=== PATIENT | female | born 1980 | race Caucasian/White ===

== ENCOUNTER 2024-04-02 07:37 | Emergency (ER) | payer BC, SELFPAY ==
[2024-04-02] VITALS (9 sets, daily range): BP systolic 94–125; BP diastolic 61–83; BMI 31.3
--- NOTE | 2024-04-02 08:44 | ED.GENMED ---
History of Present Illness
General
Chief Complaint: Blood Pressure Problem
Source: patient
Exam Limitations: none
Time Seen by Provider: 04/02/24 08:07
Nursing documentation reviewed up to this point in time: agreed with
History of Present Illness
History of Present Illness:
Patient with history of lupus maintained on hydroxychloroquine, presents to ED secondary to persistent headache, along with chills sensation and multiple vomiting episodes over the past 2 days. Of note, patient is status post right lower tooth
implant 4 days ago. Since then, patient has had persistent tooth pain, which she has attributed to the procedure. Patient has been taking 800 mg of Advil, with gradual improvement in her tooth ache. Denies throat swelling or pain. Denies loss of
appetite. Denies blurred vision. Denies dizziness. Denies loss of sensation or weakness. Denies previous history of headache. Denies recent sick contact. Denies recent travel. Denies rash.
Review of Systems
Review of Systems
Allergies reviewed?: Yes
All Other Systems: ROS reviewed and negative except as documented in HPI and ROS
Constitutional: Reports chills; Denies fever
EENT: Reports other (Tooth ache)
Respiratory: Reports no symptoms
Cardiac: Reports no symptoms
ABD/GI: Reports nausea and vomiting; Denies abdominal pain
Musculoskeletal: Reports no symptoms
Skin: Reports no symptoms
Neurological: Reports headache; Denies dizzy or weakness
Phy Exam
Physical Exam
Physical Exam:
Physical Exam
General: mild painful distress, not acutely ill. afebrile
Head: nc/at. eomi.
Neck: supple. no meningeal signs. negative Kernig's and Brudzinski sign. right lower teeth #30/31 with transplant noted with mild gingival swelling and tenderness to palpation.
Heart: s1/s2 regular rate and rhythm, no murmur. equal radial pulses.
Lungs: no acute respiratory distress. clear bilaterally
Abdomen: normal bowel sounds. not tender.
Neuro: alert and oriented. no focal neurological deficits
Skin: no rash
Psychiatric: well kept. interactive and cooperative
Extremities: no edema. no calf tenderness.
Course
Orders/Labs/Results
Orders:
Orders
04/02/24 08:23
0.9% Sodium Chloride 1000 ml [Nss] 1,000 ml IV BOLUS
Ketorolac [Toradol] 15 mg IV NOW STA
Ondansetron Injectable [Zofran] 4 mg IV NOW STA
Test Result ONCE
04/02/24 08:54
CBC/With ESR Urgent
CRP [C-Reactive Protein] Urgent
Comprehensive Metabolic Panel Urgent
HCG, Serum Qualitative Screen Urgent
Magnesium Urgent
04/02/24 09:01
Urinalysis Reflex To Culture Urgent
Date Specimen was Collected: 04/02/24
Time Specimen was Collected: 09:00
04/02/24 09:31
COVID-19 Antigen Urgent
Source: Nasal Swab
04/02/24 10:11
Acetaminophen [Tylenol] 1,000 mg PO NOW STA
Morphine Sulfate 2 mg IV NOW STA
04/02/24 11:42
Clindamycin HCl [Cleocin] 300 mg PO NOW STA
HYDROmorphone [Dilaudid] 0.5 mg IV NOW STA
Abnormal Lab Results
04/02/24
08:54
WBC 4.0 L 10^3/uL
(4.8-10.8)
Hgb 11.3 L g/dL
(12.0-16.0)
Hct 34.8 L %
(37.0-47.0)
MCV 76.7 L fL
(81.0-99.0)
MCH 24.9 L pg
(27.0-31.0)
MCHC 32.5 L g/dL
(33.0-37.0)
RDW 15.2 H %
(11.5-14.5)
Absolute Lymphs (auto) 0.7 L 10^3/uL
(1.2-3.4)
Lymphocytes % 17.7 L %
(20.5-51.1)
Sodium 133 L mmol/L
(135-145)
Glucose 105 H mg/dl
(70-99)
04/02/24 08:54
04/02/24 08:54
Vital Signs
Initial and Last Documented VS:
Initial Vital Signs
Temp Pulse Resp BP Pulse Ox
97.7 F 88 16 121/81 98
04/02/24 07:44 04/02/24 07:44 04/02/24 07:44 04/02/24 07:44 04/02/24 07:44
Last Documented Vital Signs
Temp Pulse Resp BP Pulse Ox
97.7 F 54 10 94/61 97
04/02/24 07:44 04/02/24 13:30 04/02/24 13:30 04/02/24 13:00 04/02/24 13:30
MDM/Problems Addressed
MDM/Problems Addressed:
Pt with sig. improvement in symptoms after treatment in ED and remains afebrile, hemodynamically stable and neurologically intact.
Pt with nonspecific headache, preceded by recent dental procedure, raising possibility of headache secondary to procedure vs early infection vs viral.
Pt will be started on abx along with recommendation for oral surgery f/u as outpatient.
*Critical Care Note
Total Time (30-74mins, 75-104mins- exclusive of procedures): Not Applicable
ED Attending Note
-
Portions of this chart may have been created with voice recognition software.� Occasional wrong word or��sound alike� substitutions may have occurred due to the inherent limitations of voice recognition software.
Discharge Plan
Departure
Patient Disposition: Home (Routine Discharge)
Date of Disposition: 04/02/24
Time of Disposition: 13:42
Patient with high blood pressure during this ER visit?: Yes
Discharge Problem:
Headache
Instructions: Headaches in adults
Prescriptions:
New
tramadol 50 mg tablet
50 mg PO Q8H PRN (Reason: Pain) Qty: 14 0RF
clindamycin HCl 300 mg capsule
300 mg PO TID Qty: 20 0RF
Referrals:
UNKNOWN - PT DOES,NOT KNOW [Family Provider] -
Activity Restrictions/Additional Instructions:
As discussed, please follow up with your primary care physician and/or oral surgeon for re-evaluation. Your prescriptions have been sent electronically to [facility] pharmacy in [place].
Interventions
Interventions:
*Risk Screen - Suicide Last Done: 04/02/24 09:00
*General Assessment Last Done: 04/02/24 09:00
*Neglect/Abuse Screening Last Done: 04/02/24 09:00
ED- Fall Risk Assessment Last Done: 04/02/24 09:36
*ED COVID-19 Vaccine History Last Done: 04/02/24 09:00
ED- Cardiac Assessment Last Done: 04/02/24 09:37
ED- Neurological Assessment Last Done: 04/02/24 09:36
ED- Pulmonary Assessment Last Done: 04/02/24 09:36
Discharge Date and Time
Print Language: MACANESE
[2024-04-02] MEDS: NSS 1000 IV (08:53)
[2024-04-02] MEDS: TORADOL 15 MG IV (08:57)
[2024-04-02] MEDS: ZOFRAN 4 MG IV (08:58)
[2024-04-02 09:10] LABS: % Immature Granulocytes 0.2 % (0-0.5); % Lymphocytes 17.7 % (20.5-51.1); % Monocytes 9.2 % (1.7-9.3); % Neutrophils 69.9 % (42.2-75.2); Absolute Eosinophils 0.1 10^3/uL (0-0.7); Absolute Lymphocytes 0.7 10^3/uL (1.2-3.4); Absolute Monocytes 0.4 10^3/uL (0.1-0.6); Absolute Neutrophils 2.8 10^3/uL (1.4-6.5); Hematocrit 34.8 % (37.0-47.0); Hemoglobin 11.3 g/dL (12.0-16.0); Mean Corp Hgb Conc. 32.5 g/dL (33.0-37.0); Mean Corpuscular Hgb 24.9 pg (27.0-31.0); Mean Corpuscular Volume 76.7 fL (81.0-99.0); Mean Platelet Volume 10.3 fL (7.4-10.4); Nucleated Red Blood Cells % 0 %; Platelet Count 299 10^3/uL (130-400); Red Blood Cell Count 4.54 10^6/uL (4.20-5.40); Red Cell Dist. Width 15.2 % (11.5-14.5)
[2024-04-02 09:20] LABS: HCG, Serum Qualitative Screen Negative
[2024-04-02 09:25] LABS: Urine Albumin Negative (Neg - Trace); Urine Bilirubin Negative (Negative); Urine Character Clear (Clear); Urine Color Yellow; Urine Glucose Negative (Negative); Urine Ketone Negative (Negative); Urine Leukocyte Negative (Negative); Urine Nitrite Negative (Negative); Urine Occult Blood Negative (Negative); Urine Specific Gravity 1.025 (<1.030); Urine Urobilinogen Negative (Neg - 1+)
[2024-04-02 09:25] LABS: ALT (SGPT) 27 U/L (0-35); AST (SGOT) 35 U/L (14-36); Albumin 4.1 g/dl (3.5-5.0); Alkaline Phosphatase 68 U/L (38-126); Blood Urea Nitrogen 10 mg/dl (7-17); Carbon Dioxide 23 mmol/L (22-30); Chloride 102 mmol/L (98-107); Estimated Creatinine Clearance 98 ml/min; Glucose 105 mg/dl (70-99); Magnesium 1.6 mg/dl (1.6-2.3); Potassium 4.4 mmol/L (3.5-5.1); Sodium 133 mmol/L (135-145); Total Bilirubin 0.6 mg/dl (0.2-1.3); Total Protein 7.3 g/dl (6.3-8.2); eGFR > 60.00
[2024-04-02 09:37] LABS: C-Reactive Protein < 5.00 mg/L (0.0-10.00)
[2024-04-02 09:57] LABS: COVID-19 Antigen Negative (Negative)
[2024-04-02 10:24] LABS: Erythrocyte Sed Rate 20 mm/hour (0-20)
[2024-04-02] MEDS: TYLENOL 1000 MG PO (10:24)
[2024-04-02] MEDS: MORPHINE SULFATE 2 MG IV (10:25)
[2024-04-02] MEDS: DILAUDID 0.5 MG IV (12:12)
[2024-04-02] MEDS: CLEOCIN 300 MG PO (12:13)
== END 2024-04-02 14:45 | disposition home or self-care (01) ==
LOC: EMR 07:37
PROVIDERS: EMERGENCY PHYSICIAN Emergency Medicine
DX: R51.9 Headache, unspecified (principal); R03.0 Elevated blood-pressure reading, without diagnosis of hypertension
CPT/HCPCS: 99284; 96374; 96375 ×3; 96361; 80053; 81003; 83735; 84703; 85025; 85652; 86140; 87811

== ENCOUNTER → 2024-08-04 12:57 | Outpatient (REF) | payer BC, SELFPAY | LOC: HWWDC 12:57 | PROVIDERS: ATTENDING PHYSICIAN Student in an Organized Health Care Education/Training Program | DX: Z12.31 Encounter for screening mammogram for malignant neoplasm of breast (principal) | CPT/HCPCS: 77063; 77067 ==

== ENCOUNTER → 2025-07-15 09:33 | Outpatient (REF) | payer BC, SELFPAY | LOC: WDC 09:33 | PROVIDERS: ATTENDING PHYSICIAN Obstetrics & Gynecology; FAMILY PHYSICIAN Student in an Organized Health Care Education/Training Program | DX: N63.13 Unspecified lump in the right breast, lower outer quadrant (principal) | CPT/HCPCS: 76642; 77062; 77066 ==